=== PATIENT | female | born 1970 | race Caucasian/White ===

== ENCOUNTER 2020-10-19 08:15 | Emergency (ER) | payer BC ==
[~2020-10-19 08:15] MED LIST: IPRAT-ALBUT 0.5-3 ML NEB; LEVAQUIN750 MG PO
[2020-10-19 08:49] LABS: HEMOGLOBIN 14.6 gm/dl (12.3-15.3); RED BLOOD COUNT 4.94 M/UL (4.00-5.10); WHITE BLOOD COUNT 6.1 K/UL (4.5-11.0)
[2020-10-19 09:29] LABS: BUN/CREATININE RATIO 19 (0-10)
== END 2020-10-19 10:57 | disposition home or self-care (01) ==
LOC: ER1 08:15
PROVIDERS: Emergency Medicine
DX: I10 Essential (primary) hypertension (principal); H53.2 Diplopia; R42 Dizziness and giddiness; F17.200 Nicotine dependence, unspecified, uncomplicated
CPT/HCPCS: 70450; 71045; 80053; 82550; 82553; 83874; 84484; 85025; 85610; 85730; 93005; 99285